=== PATIENT | female | born 1965 | race Caucasian/White ===

== ENCOUNTER 2018-04-15 15:35 | Emergency (ER) | payer OTHER ==
[~2018-04-15] VITALS: Ht 167.6 cm; Wt 83.9 kg
--- NOTE | 2018-04-15 15:55 | NUR ---
LACERATION TO RIGHT INDEX FINGER. TOP OF FINGER REMAINS ATTACHED WITH SKIN. PAIN LEVEL 6/10. PT IS AOX4, AMBULATORY, VSS, RR EVEN AND UNLABORED. NO ACUTE DISTRESS NOTED. DENIES SOB, DIZZINES, WEAKNESS, N/V. SEEN BY NARDA PANIAGUA.
[2018-04-15] MEDS ORDERED: IBUPROFEN 600 MG TABLET PO ONE ×2 (16:30)
[2018-04-15] MEDS ORDERED: LIDOCAINE 1% INJ 50 ML MDV IJ ONE ×3 (16:30)
--- NOTE | 2018-04-15 16:34 | NUR ---
NARDA PANIAGUA AND STRUCTURAL FITTER STUDENT ZOEY AT BEDSIDE FOR SUTURE
--- NOTE | 2018-04-15 17:40 | NUR ---
EMT AT BEDSIDE FOR WOUND DRESSING AND SPLINT APPLICATION
--- NOTE | 2018-04-15 18:10 | NUR ---
Patient discharged to home in stable condition. Written and verbal after care instructions given. Patient verbalizes understanding of instruction.
[2018-04-15 18:14] VITALS: BP 121/62
== END 2018-04-15 18:15 | disposition home or self-care (01) ==
LOC: ER 15:38
DX: S61.210A Laceration without foreign body of right index finger without damage to nail, initial encounter (principal); E03.9 Hypothyroidism, unspecified; F32.9 Major depressive disorder, single episode, unspecified; Z88.1 Allergy status to other antibiotic agents; W26.8XXA Contact with other sharp object(s), not elsewhere classified, initial encounter; Y93.89 Activity, other specified; Y92.89 Other specified places as the place of occurrence of the external cause; Y99.8 Other external cause status
CPT/HCPCS: 12001; 73140; 99283; A4606; A6402 ×2; J3490; Z7610

== ENCOUNTER 2018-07-28 17:10 | Emergency (ER) | payer OTHER ==
[~2018-07-28] VITALS: Ht 160 cm; Wt 87.5 kg
[2018-07-28 17:15] VITALS: BP 126/82
--- NOTE | 2018-07-28 18:50 | NUR ---
Patient discharged to home in stable condition. Written and verbal after care instructions given. Patient verbalizes understanding of instruction.
== END 2018-07-28 18:50 | disposition home or self-care (01) ==
LOC: ER 17:10
DX: S06.0X0A Concussion without loss of consciousness, initial encounter (principal); E05.90 Thyrotoxicosis, unspecified without thyrotoxic crisis or storm; F32.9 Major depressive disorder, single episode, unspecified; Z88.1 Allergy status to other antibiotic agents; Z88.8 Allergy status to other drugs, medicaments and biological substances; W22.8XXA Striking against or struck by other objects, initial encounter; Y93.89 Activity, other specified; Y92.89 Other specified places as the place of occurrence of the external cause; Y99.8 Other external cause status
CPT/HCPCS: Z7502